=== PATIENT | male | born 1985 | race Caucasian/White ===

== ENCOUNTER 2019-11-16 21:54 | Emergency (ER) | payer MEDICAID ==
[~2019-11-16] VITALS: Ht 175.3 cm; Wt 100.0 kg
[2019-11-16] MEDS ORDERED: bacitracin 15gm ointment TP ONE (22:45)
[2019-11-16] MEDS ORDERED: TETanus/Pertussis (Acell)/Diphther VAC/PF (Tdap-Adult) 0.5ml syringe IMVAC ONE (22:45)
[2019-11-16] MEDS ORDERED: LIDOcaine 1% W/epiNEPHrine 1:200,000 10ml vial IJ ONE (22:45)
[2019-11-16 23:14] VITALS: BP 191/126
== END 2019-11-17 00:16 | disposition home or self-care (01) ==
LOC: ER 21:54
DX: S61.511A Laceration without foreign body of right wrist, initial encounter (principal); I10 Essential (primary) hypertension; I25.2 Old myocardial infarction; W22.8XXA Striking against or struck by other objects, initial encounter; Y93.89 Activity, other specified; Y92.89 Other specified places as the place of occurrence of the external cause; Y99.8 Other external cause status
CPT/HCPCS: 12001; 90471; 90715; 99283

== ENCOUNTER 2021-07-21 17:20 | Emergency (ER) | payer MEDICAID ==
[~2021-07-21] VITALS: Ht 175.3 cm; Wt 95.8 kg
[2021-07-21 17:48] VITALS: BP 166/104
== END 2021-07-21 20:24 | disposition left against medical advice (07) ==
LOC: ER 17:21
DX: R05 Cough (principal); Z53.21 Procedure and treatment not carried out due to patient leaving prior to being seen by health care provider

== ENCOUNTER 2021-08-17 11:49 | Inpatient (IN) | payer MEDICAID ==
[~2021-08-17] VITALS: Ht 175.3 cm; Wt 95.9 kg
[2021-08-17] MEDS ORDERED: cloNIDine 0.1 mg tablet PO ONE (18:15)
[2021-08-17 18:31] LABS: BASOPHILS % (AUTO) 0.5 % (0-1); EOSINOPHILS # (AUTO) 0.1 X10'3 (0-0.9); EOSINOPHILS % (AUTO) 0.7 % (0-6); HEMATOCRIT 42.5 % (42.0-52.0); HEMOGLOBIN 14.6 g/dl (14.0-17.9); LYMPHOCYTES # (AUTO) 0.8 X10'3 (1.1-4.8); LYMPHOCYTES % (AUTO) 9.1 % (21-51); MEAN CORPUSCULAR HEMOGLOBIN 30.3 PG (27.0-31.0); MEAN CORPUSCULAR HGB CONC 34.3 g/dL (33.0-36.5); MEAN CORPUSCULAR VOLUME 88.5 FL (78-98); MEAN PLATELET VOLUME 8.2 FL (7.4-10.4); MONOCYTES # (AUTO) 0.6 X10'3 (0-0.9); MONOCYTES % (AUTO) 7.1 % (2-12); NEUTROPHILS # (AUTO) 7.5 X10'3 (1.8-7.7); NEUTROPHILS % (AUTO) 82.6 % (42-75); PLATELET COUNT 256 X10'3 (140-440); RED CELL DISTRIBUTION WIDTH 14.3 % (11.5-14.5); WHITE BLOOD COUNT 9.1 X10'3 (4.5-11.0)
[2021-08-17 18:41] LABS: D-DIMER 0.22 MG/L FEU (0-0.50)
[2021-08-17 18:45] LABS: ALANINE AMINOTRANSFERASE 34 U/L (12-78); ALBUMIN 3.5 G/DL (3.4-5.0); ALKALINE PHOSPHATASE 77 IU/L (46-116); ANION GAP 13 (8-16); ASPARTATE AMINO TRANSFERASE 19 U/L (10-37); BILIRUBIN,TOTAL 1.1 MG/DL (0.1-1.0); BLOOD UREA NITROGEN 29 MG/DL (7-18); BUN/CREATININE RATIO 16.7 (5.4-32.0); CALCIUM 8.7 MG/DL (8.5-10.1); CHLORIDE 107 MMOL/L (99-107); CREATININE 1.74 MG/DL (0.60-1.10); GLUCOSE 108 MG/DL (70-104); POTASSIUM 3.6 MMOL/L (3.5-5.1); SODIUM 144 MMOL/L (135-145); TOTAL CARBON DIOXIDE 23.9 MMOL/L (24-32); TOTAL PROTEIN 6.9 G/DL (6.4-8.2); eGFR 45 ML/MIN
[2021-08-17 18:51] LABS: ETHANOL < 0.010 GM/DL (0.0-0.010)
[2021-08-17] MEDS ORDERED: furosemide 20MG tablet PO ONE (18:55)
[2021-08-17] MEDS ORDERED: nitroGLYCERIN 1gm ointment UD TP ONE (19:15)
[2021-08-17] MEDS ORDERED: metoprolol tartrate 1mg/ml inj IV ONE (19:15)
[2021-08-17] MEDS: furosemide inj 100 MG in normal saline 100ml IV soln 90 ML IV SCH (21:22)
[2021-08-17] MEDS ORDERED: mag hydrox/Alum hydrox/simeth 30ml oral suspension PO PRN (21:45)
[2021-08-17] MEDS ORDERED: ondansetron/PF 4mg/2ml inj IV PRN (21:45)
[2021-08-17] MEDS ORDERED: magnesium hydroxide 30ml (MOM) UD suspension PO PRN (21:45)
[2021-08-17] MEDS ORDERED: bisacodyl 10mg suppository rectal RC PRN (21:45)
[2021-08-17] MEDS: lisinopril 20mg tablet PO SCH (22:19)
[2021-08-17] MEDS: aspirin 81mg, enteric-coated 1 TAB TABLET.DR PO SCH (22:20)
[2021-08-17 23:34] LABS: CLARITY,URINE CLEAR (Clear); COLOR,URINE YELLOW (Yellow); UA COLLECTION TYPE VOIDED
[2021-08-17 23:35] LABS: GLUCOSE, URINE NEGATIVE (Neg); KETONES,URINE NEGATIVE (Neg); LEUKOCYTE ESTERASE ,URINE NEGATIVE (Neg); NITRITES, URINE NEGATIVE (Neg); OCCULT BLOOD,URINE NEGATIVE (Neg); PROTEIN,URINE >=1000 mg/dl (Neg); UROBILINOGEN,URINE 0.2 E.U/dL (0.2-1.0)
[2021-08-17 23:38] LABS: URINE AMPHETAMINE SCREEN NEGATIVE (Neg); URINE BARBITUATE SCREEN NEGATIVE (Neg); URINE BENZODIAZEPINES SCREEN NEGATIVE (Neg); URINE CANNABINOID SCREEN NEGATIVE (Neg); URINE COCAINE SCREEN POSITIVE (Neg); URINE METHADONE SCREEN NEGATIVE (Neg); URINE OPIATE SCREEN NEGATIVE (Neg); URINE PHENCYCLIDINE SCREEN NEGATIVE (Neg)
[2021-08-17 23:39] LABS: BACTERIA,URINE NONE SEEN /HPF (Neg); RBC,URINE NONE SEEN /HPF (0-2); SQUAMOUS EPITHELIAL CELL,UR NONE SEEN /LPF (FEW); WBC,URINE 0-4 /HPF (0-4)
[2021-08-18] MEDS: acetaminophen 325mg tablet PO PRN (04:14)
[2021-08-18] MEDS: hydrALAZINE 20mg/ml inj. IV PRN ×2 (04:15→10:10)
[2021-08-18 07:46] LABS: BASOPHILS % (AUTO) 0.6 % (0-1); EOSINOPHILS # (AUTO) 0.1 X10'3 (0-0.9); HEMATOCRIT 39.8 % (42.0-52.0); HEMOGLOBIN 13.8 g/dl (14.0-17.9); LYMPHOCYTES # (AUTO) 0.7 X10'3 (1.1-4.8); LYMPHOCYTES % (AUTO) 8.7 % (21-51); MEAN CORPUSCULAR HEMOGLOBIN 30.6 PG (27.0-31.0); MEAN CORPUSCULAR HGB CONC 34.5 g/dL (33.0-36.5); MEAN CORPUSCULAR VOLUME 88.6 FL (78-98); MEAN PLATELET VOLUME 8.4 FL (7.4-10.4); MONOCYTES # (AUTO) 0.6 X10'3 (0-0.9); MONOCYTES % (AUTO) 6.8 % (2-12); NEUTROPHILS % (AUTO) 82.9 % (42-75); PLATELET COUNT 274 X10'3 (140-440); RED CELL DISTRIBUTION WIDTH 14.5 % (11.5-14.5); WHITE BLOOD COUNT 8.5 X10'3 (4.5-11.0)
[2021-08-18 07:54] LABS: ALANINE AMINOTRANSFERASE 29 U/L (12-78); ALBUMIN 3.6 G/DL (3.4-5.0); ALBUMIN/GLOBULIN RATIO 1.1 (1.1-1.5); ALKALINE PHOSPHATASE 67 IU/L (46-116); ANION GAP 10 (8-16); ASPARTATE AMINO TRANSFERASE 16 U/L (10-37); BILIRUBIN,TOTAL 0.9 MG/DL (0.1-1.0); BLOOD UREA NITROGEN 28 MG/DL (7-18); BUN/CREATININE RATIO 17.6 (5.4-32.0); CALCIUM 8.6 MG/DL (8.5-10.1); CHLORIDE 106 MMOL/L (99-107); CREATININE 1.59 MG/DL (0.60-1.10); GLUCOSE 91 MG/DL (70-104); POTASSIUM 3.2 MMOL/L (3.5-5.1); SODIUM 144 MMOL/L (135-145); TOTAL CARBON DIOXIDE 27.7 MMOL/L (24-32); TOTAL PROTEIN 6.8 G/DL (6.4-8.2); eGFR 50 ML/MIN
[2021-08-18 07:59] LABS: CHOL/HDL RATIO 4.4 (0.00-4.99); CHOLESTEROL 131 MG/DL (0-200); HDL CHOLESTEROL 30 MG/DL (35-60); LDL CHOLESTEROL 81 MG/DL (50-100); TRIGLYCERIDES 114 MG/DL (20-135)
[2021-08-18] MEDS: furosemide 40mg/4ml inj IV SCH (08:00)
[2021-08-18] MEDS ORDERED: diltiazem CD 120mg capsule (once-daily) PO SCH (08:00)
[2021-08-18] MEDS: furosemide inj 100 MG in normal saline 100ml IV soln 90 ML IV SCH (09:14)
[2021-08-18] MEDS ORDERED: potassium Cl 20 mEq SR tablet PO STA (09:56)
[2021-08-18] MEDS: aspirin 81mg, enteric-coated 1 TAB TABLET.DR PO SCH (10:09)
[2021-08-18] MEDS: docusate sod 100mg capsule PO SCH ×2 (10:09→19:31)
[2021-08-18] MEDS: lisinopril 20mg tablet PO SCH (10:10)
[2021-08-18] MEDS: enoxaparin 40mg/0.4ml syringe SUBCUT SCH (10:11)
[2021-08-18] MEDS ORDERED: potassium Cl 40MEQ/1/2NS 520ml 520 ML IV PRN (16:25)
[2021-08-18] MEDS ORDERED: potassium Cl 20 mEq SR tablet PO PRN ×2 (16:25)
[2021-08-18] MEDS: hydrALAZINE 25 MG tablet PO SCH (16:40)
--- NOTE | 2021-08-18 16:46 | NUR ---
PT UP TO BR, VOIDED X8 THRU OUT THE DAY
--- NOTE | 2021-08-18 17:11 | NUR ---
TO CT SCAN VIA WHEELCHAIR IN STABLE CONDITION
[2021-08-18] MEDS ORDERED: iohexol 350MG/ML 100ml bottle IV ONE (17:14)
[2021-08-18] MEDS: diatr meglu/diatrizoate 30ml oral sol.-(3 dose) bottle PO SCH (23:07)
[2021-08-19] MEDS: hydrALAZINE 20mg/ml inj. IV PRN (00:44)
[2021-08-19] MEDS ORDERED: nitroGLYCERIN 0.4mg/hour patch TD SCH (01:55)
[2021-08-19] MEDS: carVEDilol 12.5mg tablet PO SCH ×2 (02:04→07:58)
[2021-08-19] MEDS: hydrALAZINE 25 MG tablet PO SCH ×2 (02:04→07:58)
--- NOTE | 2021-08-19 02:18 | NUR ---
Report called to the floor, to discharge specialist, by this author.
--- NOTE | 2021-08-19 03:25 | NUR ---
PAGER ID: [phone] MESSAGE: [phone] Lio Thacker not receive report from ER nurse. Pt was given gastrografen in. I don't know what for. Could you please clarify this for me. I want to ensure that nothing is getting missed being that I got zero report. Daniella [phone]
--- NOTE | 2021-08-19 03:51 | NUR ---
Paged Dr Guerrero regarding new admit. No report was not called to Primary RN. ER Charge called and attempted to give report to [place]. No information was exchanged. I paged for clarification regarding Gastrografin that the pt stated he received in ED at approx 2300, 0700 dose scheduled as well. No orders for procedure are in pt chart. Unsure as to why pt is receiving this RX. Dr Guerrero called back stated claudia ordered Ct w & w/o contrast but all procedure order have already been completed. Dr guerrero instructed me to not give contrast in am. Clarified that no other labs have been obtained since 1630 08/18 and pt is on lasix gtt per protocol labs are needed Q6. he okayed for labs to be obtained in am and then continue Q6. Pt stable, alert and oriented, vss stable with expected elevated bp of systolic 175. Placed on cardiac monitoring Lasix gtt running at 10mg/hr. Pt has no c/o at this time stated he wanted to try and sleep. Will continue to monitor.
[2021-08-19 06:00] VITALS: BP 157/83
[2021-08-19] MEDS: diatr meglu/diatrizoate 30ml oral sol.-(3 dose) bottle PO SCH (07:00)
--- NOTE | 2021-08-19 07:03 | NUR ---
Problems reprioritized. Patient report given, questions answered & plan of care reviewed with Siria GUTIERREZ.
[2021-08-19 07:13] LABS: BASOPHILS % (AUTO) 0.4 % (0-1); EOSINOPHILS # (AUTO) 0.1 X10'3 (0-0.9); EOSINOPHILS % (AUTO) 1.2 % (0-6); HEMATOCRIT 43.5 % (42.0-52.0); HEMOGLOBIN 14.7 g/dl (14.0-17.9); LYMPHOCYTES # (AUTO) 0.5 X10'3 (1.1-4.8); LYMPHOCYTES % (AUTO) 6.2 % (21-51); MEAN CORPUSCULAR HEMOGLOBIN 30.3 PG (27.0-31.0); MEAN CORPUSCULAR HGB CONC 33.7 g/dL (33.0-36.5); MEAN CORPUSCULAR VOLUME 89.8 FL (78-98); MEAN PLATELET VOLUME 8.3 FL (7.4-10.4); MONOCYTES # (AUTO) 0.7 X10'3 (0-0.9); MONOCYTES % (AUTO) 9.6 % (2-12); NEUTROPHILS # (AUTO) 6.4 X10'3 (1.8-7.7); NEUTROPHILS % (AUTO) 82.6 % (42-75); PLATELET COUNT 287 X10'3 (140-440); RED BLOOD COUNT 4.85 X10'6 (4.70-6.10); RED CELL DISTRIBUTION WIDTH 14.6 % (11.5-14.5); WHITE BLOOD COUNT 7.7 X10'3 (4.5-11.0)
[2021-08-19 07:47] LABS: ALANINE AMINOTRANSFERASE 31 U/L (12-78); ALBUMIN 3.3 G/DL (3.4-5.0); ALKALINE PHOSPHATASE 68 IU/L (46-116); ANION GAP 12 (8-16); ASPARTATE AMINO TRANSFERASE 14 U/L (10-37); BLOOD UREA NITROGEN 25 MG/DL (7-18); BUN/CREATININE RATIO 16.8 (5.4-32.0); CALCIUM 8.4 MG/DL (8.5-10.1); CHLORIDE 102 MMOL/L (99-107); CREATININE 1.49 MG/DL (0.60-1.10); GLUCOSE 107 MG/DL (70-104); SODIUM 141 MMOL/L (135-145); TOTAL CARBON DIOXIDE 27.3 MMOL/L (24-32); TOTAL PROTEIN 6.6 G/DL (6.4-8.2); eGFR 53 ML/MIN
[2021-08-19] MEDS: furosemide inj 100 MG in normal saline 100ml IV soln 90 ML IV SCH (07:57)
[2021-08-19] MEDS: aspirin 81mg, enteric-coated 1 TAB TABLET.DR PO SCH (07:58)
[2021-08-19] MEDS: docusate sod 100mg capsule PO SCH (07:58)
[2021-08-19] MEDS: lisinopril 20mg tablet PO SCH (07:59)
[2021-08-19] MEDS: enoxaparin 40mg/0.4ml syringe SUBCUT SCH (07:59)
[2021-08-19] MEDS: furosemide 40mg/4ml inj IV SCH (08:00)
[2021-08-19 08:31] LABS: POTASSIUM 2.7 MMOL/L (3.5-5.1)
[2021-08-19] MEDS: acetaminophen 325mg tablet PO PRN (09:20)
[2021-08-19 10:00] LABS: ALANINE AMINOTRANSFERASE 29 U/L (12-78); ALBUMIN 3.3 G/DL (3.4-5.0); ALKALINE PHOSPHATASE 67 IU/L (46-116); ANION GAP 10 (8-16); ASPARTATE AMINO TRANSFERASE 13 U/L (10-37); BILIRUBIN,TOTAL 0.9 MG/DL (0.1-1.0); BLOOD UREA NITROGEN 23 MG/DL (7-18); BUN/CREATININE RATIO 14.1 (5.4-32.0); CALCIUM 8.5 MG/DL (8.5-10.1); CHLORIDE 102 MMOL/L (99-107); CREATININE 1.63 MG/DL (0.60-1.10); GLUCOSE 119 MG/DL (70-104); MAGNESIUM 1.8 MG/DL (1.5-2.4); POTASSIUM 3.1 MMOL/L (3.5-5.1); SODIUM 141 MMOL/L (135-145); TOTAL CARBON DIOXIDE 28.8 MMOL/L (24-32); TOTAL PROTEIN 6.6 G/DL (6.4-8.2); eGFR 48 ML/MIN
[2021-08-19] MEDS ORDERED: ASPI-1071 PO (10:52)
[2021-08-19] MEDS ORDERED: HYDR-4069 PO (10:52)
[2021-08-19] MEDS ORDERED: CARV-50 PO (10:52)
[2021-08-19] MEDS ORDERED: LISI20TA28 PO (10:52)
[2021-08-19] MEDS ORDERED: FURO-149 PO (10:53)
[2021-08-19] MEDS ORDERED: POTA20TA19 PO (10:54)
[2021-08-19] MEDS ORDERED: POTA10TA36 PO (10:54)
[2021-08-19 11:00] VITALS: BP 141/87
--- NOTE | 2021-08-19 13:00 | NUR ---
Patient stable for discharge. PIV x2 removed with catheter intact. Discharge instructions given to patient and the spouse. Both verbalized understanding. All belongings sent home with patient. Patient transferred off unit via wheelchair to 's vehicle.
== END 2021-08-19 13:00 | disposition home or self-care (01) | DRG 199 ==
LOC: ER 11:49 → ED HOLD 21:54 → PCU 3S 08-19 02:48
PROVIDERS: ADMIT Family Medicine; ATTEND Internal Medicine
PROC: B4201ZZ Computerized Tomography (CT Scan) of Abdominal Aorta using Low Osmolar Contrast (ICD-10-PCS; principal; 2021-08-18)
PROC: B4281ZZ Computerized Tomography (CT Scan) of Bilateral Renal Arteries using Low Osmolar Contrast (ICD-10-PCS; 2021-08-18)
PROC: B42C1ZZ Computerized Tomography (CT Scan) of Pelvic Arteries using Low Osmolar Contrast (ICD-10-PCS; 2021-08-18)
PROC: B42H1ZZ Computerized Tomography (CT Scan) of Bilateral Lower Extremity Arteries using Low Osmolar Contrast (ICD-10-PCS; 2021-08-18)
PROC: B4211ZZ Computerized Tomography (CT Scan) of Celiac Artery using Low Osmolar Contrast (ICD-10-PCS; 2021-08-18)
DX: I16.1 Hypertensive emergency (principal); N17.9 Acute kidney failure, unspecified; I24.8 Other forms of acute ischemic heart disease; K92.0 Hematemesis; R04.2 Hemoptysis; Z20.822 Contact with and (suspected) exposure to COVID-19; I11.0 Hypertensive heart disease with heart failure; I50.9 Heart failure, unspecified; I25.2 Old myocardial infarction; Z56.0 Unemployment, unspecified; Z83.49 Family history of other endocrine, nutritional and metabolic diseases; Z79.899 Other long term (current) drug therapy; Z79.82 Long term (current) use of aspirin; Z91.14 Patient's other noncompliance with medication regimen
CPT/HCPCS: 36415; 71045; 71250; 74170; 80053; 80061; 80305; 80320; 81001; 83735; 83880; 84132; 84484; 85025; 85379; 87081; 87635; 93005; 93306; 96374; 99291; C9803; G0378; J0360; J1650; J1940; J3490; Q9963; Q9967

== ENCOUNTER 2021-09-25 18:27 | Emergency (ER) | payer MEDICAID ==
[~2021-09-25] VITALS: Ht 175.3 cm; Wt 97.7 kg
[~2021-09-25 18:27] MED LIST: ASPI-1071 PO; CARV-50 PO; FURO-149 PO; HYDR-4069 PO; LISI20TA28 PO; POTA10TA37 PO
[2021-09-25 19:19] LABS: BASOPHILS # (AUTO) 0.1 X10'3 (0-0.2); BASOPHILS % (AUTO) 0.8 % (0-1); EOSINOPHILS # (AUTO) 0.2 X10'3 (0-0.9); HEMATOCRIT 40.6 % (42.0-52.0); HEMOGLOBIN 13.6 g/dl (14.0-17.9); LYMPHOCYTES # (AUTO) 0.6 X10'3 (1.1-4.8); LYMPHOCYTES % (AUTO) 10.1 % (21-51); MEAN CORPUSCULAR HEMOGLOBIN 28.4 PG (27.0-31.0); MEAN CORPUSCULAR HGB CONC 33.5 g/dL (33.0-36.5); MEAN CORPUSCULAR VOLUME 84.7 FL (78-98); MEAN PLATELET VOLUME 8.2 FL (7.4-10.4); MONOCYTES # (AUTO) 0.5 X10'3 (0-0.9); MONOCYTES % (AUTO) 8.2 % (2-12); NEUTROPHILS # (AUTO) 4.7 X10'3 (1.8-7.7); NEUTROPHILS % (AUTO) 77.9 % (42-75); PLATELET COUNT 237 X10'3 (140-440); RED BLOOD COUNT 4.79 X10'6 (4.70-6.10); WHITE BLOOD COUNT 6.1 X10'3 (4.5-11.0)
[2021-09-25 19:40] LABS: ALANINE AMINOTRANSFERASE 28 U/L (12-78); ALBUMIN 3.1 G/DL (3.4-5.0); ALBUMIN/GLOBULIN RATIO 0.9 (1.1-1.5); ALKALINE PHOSPHATASE 75 IU/L (46-116); ANION GAP 11 (8-16); ASPARTATE AMINO TRANSFERASE 23 U/L (10-37); BILIRUBIN,TOTAL 0.6 MG/DL (0.1-1.0); BLOOD UREA NITROGEN 22 MG/DL (7-18); BUN/CREATININE RATIO 12.9 (5.4-32.0); CALCIUM 8.5 MG/DL (8.5-10.1); CHLORIDE 111 MMOL/L (99-107); GLUCOSE 92 MG/DL (70-104); POTASSIUM 4.2 MMOL/L (3.5-5.1); SODIUM 143 MMOL/L (135-145); TOTAL CARBON DIOXIDE 20.9 MMOL/L (24-32); TOTAL PROTEIN 6.7 G/DL (6.4-8.2); eGFR 46 ML/MIN
[2021-09-26 01:17] VITALS: BP 223/154
--- NOTE | 2021-09-26 01:18 | NUR ---
md grant notified of elevated blood pressure. pt states this is his normal bp.
--- NOTE | 2021-09-26 04:38 | NUR ---
pt left due to wait time
== END 2021-09-26 04:39 | disposition left against medical advice (07) ==
LOC: ER 18:28
DX: R07.9 Chest pain, unspecified (principal); R60.0 Localized edema; Z53.21 Procedure and treatment not carried out due to patient leaving prior to being seen by health care provider
CPT/HCPCS: 36415; 71045; 80053; 83735; 83880; 84484; 85025; 93005

== ENCOUNTER 2021-09-26 20:42 | Inpatient (IN) | payer MEDICAID ==
[~2021-09-26] VITALS: Ht 175.3 cm; Wt 103.0 kg
[2021-09-26] MEDS ORDERED: labetalol 20mg/4ml (5mg/ml) syringe IV ONE (21:10)
[2021-09-26 21:25] LABS: BASOPHILS # (AUTO) 0.1 X10'3 (0-0.2); BASOPHILS % (AUTO) 0.9 % (0-1); EOSINOPHILS # (AUTO) 0.2 X10'3 (0-0.9); HEMATOCRIT 42.3 % (42.0-52.0); HEMOGLOBIN 14.2 g/dl (14.0-17.9); LYMPHOCYTES # (AUTO) 0.8 X10'3 (1.1-4.8); LYMPHOCYTES % (AUTO) 14.7 % (21-51); MEAN CORPUSCULAR HEMOGLOBIN 28.4 PG (27.0-31.0); MEAN CORPUSCULAR HGB CONC 33.7 g/dL (33.0-36.5); MEAN CORPUSCULAR VOLUME 84.3 FL (78-98); MEAN PLATELET VOLUME 8.1 FL (7.4-10.4); MONOCYTES # (AUTO) 0.6 X10'3 (0-0.9); MONOCYTES % (AUTO) 10.3 % (2-12); NEUTROPHILS # (AUTO) 3.9 X10'3 (1.8-7.7); NEUTROPHILS % (AUTO) 71.1 % (42-75); PLATELET COUNT 249 X10'3 (140-440); RED BLOOD COUNT 5.01 X10'6 (4.70-6.10); RED CELL DISTRIBUTION WIDTH 13.7 % (11.5-14.5); WHITE BLOOD COUNT 5.4 X10'3 (4.5-11.0)
[2021-09-26 21:35] LABS: ALANINE AMINOTRANSFERASE 28 U/L (12-78); ALBUMIN 3.2 G/DL (3.4-5.0); ALBUMIN/GLOBULIN RATIO 0.9 (1.1-1.5); ALKALINE PHOSPHATASE 76 IU/L (46-116); ANION GAP 10 (8-16); ASPARTATE AMINO TRANSFERASE 22 U/L (10-37); BILIRUBIN,TOTAL 0.7 MG/DL (0.1-1.0); BLOOD UREA NITROGEN 23 MG/DL (7-18); BUN/CREATININE RATIO 13.1 (5.4-32.0); CALCIUM 8.9 MG/DL (8.5-10.1); CHLORIDE 111 MMOL/L (99-107); CREATININE 1.76 MG/DL (0.60-1.10); GLUCOSE 88 MG/DL (70-104); POTASSIUM 4.2 MMOL/L (3.5-5.1); SODIUM 144 MMOL/L (135-145); TOTAL CARBON DIOXIDE 22.7 MMOL/L (24-32); TOTAL PROTEIN 6.9 G/DL (6.4-8.2); eGFR 44 ML/MIN
[2021-09-26] MEDS ORDERED: furosemide 10 MG/1 ML 10ml inj IV ONE (22:25)
[2021-09-27] MEDS ORDERED: magnesium Cl slow-release 64mg tablet PO PRN (00:35)
[2021-09-27] MEDS ORDERED: acetaminophen 325mg tablet PO PRN ×2 (00:35)
[2021-09-27] MEDS ORDERED: magnesium hydroxide 30ml (MOM) UD suspension PO PRN (00:35)
[2021-09-27] MEDS ORDERED: HYDROcodone/acetaminophen 5mg/325mg tablet PO PRN (00:35)
[2021-09-27] MEDS ORDERED: potassium Cl 40MEQ/1/2NS 520ml 520 ML IV PRN ×2 (00:35)
[2021-09-27] MEDS ORDERED: morphine 2 MG/ML inj. syringe IV PRN (00:35)
[2021-09-27] MEDS ORDERED: magnesium 2GM in 50ml NS 50 ML IV PRN (00:35)
[2021-09-27] MEDS ORDERED: potassium Cl 20 mEq SR tablet PO PRN (00:35)
[2021-09-27] MEDS ORDERED: ondansetron/PF 4mg/2ml inj IV PRN (00:35)
[2021-09-27] MEDS ORDERED: magnesium 4gm in 100ml NS 100 ML IV PRN (00:35)
--- NOTE | 2021-09-27 01:00 | NUR ---
PT WAS ROOMED IN BED 7.
[2021-09-27 03:10] LABS: URINE AMPHETAMINE SCREEN NEGATIVE (Neg); URINE BARBITUATE SCREEN NEGATIVE (Neg); URINE BENZODIAZEPINES SCREEN NEGATIVE (Neg); URINE CANNABINOID SCREEN NEGATIVE (Neg); URINE COCAINE SCREEN NEGATIVE (Neg); URINE METHADONE SCREEN NEGATIVE (Neg); URINE OPIATE SCREEN NEGATIVE (Neg); URINE PHENCYCLIDINE SCREEN NEGATIVE (Neg)
[2021-09-27 08:00] VITALS: BP 191/133
[2021-09-27] MEDS ORDERED: carVEDilol 12.5mg tablet PO SCH (08:00)
[2021-09-27] MEDS: K and/or MAG REPLACEMENT MC SCH ×2 (08:00→20:00)
[2021-09-27] MEDS: furosemide 20 MG/2 ML vial IV SCH ×2 (08:34→19:42)
[2021-09-27] MEDS: heparin, porcine 5000 units/ml vial SQ SCH ×2 (08:35→19:43)
[2021-09-27] MEDS: potassium chloride 10mEq ER tablet PO SCH (08:35)
[2021-09-27] MEDS: aspirin 81mg, enteric-coated 1 TAB TABLET.DR PO SCH (08:35)
[2021-09-27] MEDS: hydrALAZINE 25 MG tablet PO SCH ×2 (08:35→17:02)
[2021-09-27] MEDS: sacubitril/valsartan 24mg-26mg tablet PO SCH ×2 (10:06→22:04)
[2021-09-27 13:09] LABS: CLARITY,URINE CLEAR (Clear); COLOR,URINE Yellow (Yellow); UA COLLECTION TYPE URINAL
[2021-09-27 13:10] LABS: GLUCOSE, URINE NEGATIVE (Neg); KETONES,URINE NEGATIVE (Neg); LEUKOCYTE ESTERASE ,URINE NEGATIVE (Neg); NITRITES, URINE NEGATIVE (Neg); OCCULT BLOOD,URINE NEGATIVE (Neg); PROTEIN,URINE NEGATIVE (Neg); UROBILINOGEN,URINE 0.2 E.U/dL (0.2-1.0)
--- NOTE | 2021-09-27 14:00 | NUR ---
PATIENT EDUCATED ON USE OF 24 HR COLLECTION CONTATINER, VERBALIZED UNDERSTANDING.
--- NOTE | 2021-09-27 14:05 | NUR ---
US TECH AT BEDSIDE.
[2021-09-27] MEDS: cloNIDine 0.1 mg tablet PO SCH (19:41)
[2021-09-27] MEDS: carVEDilol 12.5mg tablet PO SCH (19:43)
--- NOTE | 2021-09-27 20:00 | NUR ---
Patient in room PCU 3017. I have received report from Spring GUTIERREZ and had the opportunity to ask questions and assume patient care.
[2021-09-27] MEDS ORDERED: temazepam 15mg capsule PO PRN (21:00)
[2021-09-27 22:00] VITALS: BP 182/110
[2021-09-28] MEDS: cloNIDine 0.1 mg tablet PO SCH ×3 (00:49→15:34)
[2021-09-28] MEDS: hydrALAZINE 25 MG tablet PO SCH ×3 (00:49→15:34)
[2021-09-28 02:00] VITALS: BP 162/108
[2021-09-28 05:57] LABS: BASOPHILS # (AUTO) 0.1 X10'3 (0-0.2); EOSINOPHILS # (AUTO) 0.3 X10'3 (0-0.9); EOSINOPHILS % (AUTO) 4.5 % (0-6); HEMATOCRIT 40.7 % (42.0-52.0); HEMOGLOBIN 13.6 g/dl (14.0-17.9); LYMPHOCYTES # (AUTO) 0.8 X10'3 (1.1-4.8); LYMPHOCYTES % (AUTO) 12.6 % (21-51); MEAN CORPUSCULAR HEMOGLOBIN 28.1 PG (27.0-31.0); MEAN CORPUSCULAR HGB CONC 33.5 g/dL (33.0-36.5); MEAN CORPUSCULAR VOLUME 84.1 FL (78-98); MEAN PLATELET VOLUME 7.9 FL (7.4-10.4); MONOCYTES # (AUTO) 0.7 X10'3 (0-0.9); MONOCYTES % (AUTO) 11.2 % (2-12); NEUTROPHILS # (AUTO) 4.2 X10'3 (1.8-7.7); NEUTROPHILS % (AUTO) 70.7 % (42-75); PLATELET COUNT 295 X10'3 (140-440); RED BLOOD COUNT 4.83 X10'6 (4.70-6.10)
[2021-09-28 06:21] LABS: ALANINE AMINOTRANSFERASE 32 U/L (12-78); ALBUMIN/GLOBULIN RATIO 0.9 (1.1-1.5); ALKALINE PHOSPHATASE 69 IU/L (46-116); ANION GAP 8 (8-16); ASPARTATE AMINO TRANSFERASE 18 U/L (10-37); BILIRUBIN,TOTAL 0.7 MG/DL (0.1-1.0); BLOOD UREA NITROGEN 22 MG/DL (7-18); BUN/CREATININE RATIO 12.9 (5.4-32.0); CALCIUM 8.5 MG/DL (8.5-10.1); CHLORIDE 108 MMOL/L (99-107); CREATININE 1.71 MG/DL (0.60-1.10); GLUCOSE 99 MG/DL (70-104); POTASSIUM 3.1 MMOL/L (3.5-5.1); SODIUM 142 MMOL/L (135-145); TOTAL CARBON DIOXIDE 25.6 MMOL/L (24-32); TOTAL PROTEIN 6.4 G/DL (6.4-8.2); eGFR 46 ML/MIN
--- NOTE | 2021-09-28 06:40 | NUR ---
Problems reprioritized. Patient report given, questions answered & plan of care reviewed with Farzaneh GUTIERREZ.
[2021-09-28] MEDS: carVEDilol 12.5mg tablet PO SCH ×2 (07:26→20:49)
[2021-09-28] MEDS: furosemide 20 MG/2 ML vial IV SCH ×2 (07:26→20:48)
[2021-09-28] MEDS: heparin, porcine 5000 units/ml vial SQ SCH ×2 (07:26→20:50)
[2021-09-28] MEDS: potassium chloride 10mEq ER tablet PO SCH (07:26)
[2021-09-28] MEDS: aspirin 81mg, enteric-coated 1 TAB TABLET.DR PO SCH (07:27)
[2021-09-28] MEDS: K and/or MAG REPLACEMENT MC SCH ×2 (08:00→20:00)
[2021-09-28] MEDS: sacubitril/valsartan 24mg-26mg tablet PO SCH ×2 (09:37→20:48)
[2021-09-28 11:00] VITALS: BP 143/98
[2021-09-28] MEDS: potassium Cl 20 mEq SR tablet PO PRN ×2 (13:11→20:59)
--- NOTE | 2021-09-28 14:20 | NUR ---
PATIENT SITTING IN CHAIR WITH VISITOR IN ROOM.
[2021-09-28 15:00] VITALS: BP 157/100
[2021-09-28 15:07] LABS: SODIUM,URINE RANDOM 104 MEQ/L
[2021-09-28 15:10] LABS: TOTAL PROTEIN,URINE RANDOM < 6.0 MG/DL
[2021-09-28 15:39] LABS: CLARITY,URINE CLEAR (Clear); COLOR,URINE STRAW (Yellow); GLUCOSE, URINE NEGATIVE (Neg); KETONES,URINE NEGATIVE (Neg); LEUKOCYTE ESTERASE ,URINE NEGATIVE (Neg); NITRITES, URINE NEGATIVE (Neg); OCCULT BLOOD,URINE NEGATIVE (Neg); PROTEIN,URINE NEGATIVE (Neg); UA COLLECTION TYPE NON-SPECIFIED; UROBILINOGEN,URINE 0.2 E.U/dL (0.2-1.0)
[2021-09-28 16:44] LABS: UA EOSINOPHILS NO EOS /HPF
--- NOTE | 2021-09-28 17:30 | NUR ---
IN ROOM WITH VISITOR EATING DINNER.
[2021-09-28 18:00] VITALS: BP 162/114
[2021-09-28 22:00] VITALS: BP 162/114
[2021-09-29] MEDS: cloNIDine 0.1 mg tablet PO SCH (00:30)
[2021-09-29] MEDS: hydrALAZINE 25 MG tablet PO SCH (00:30)
[2021-09-29 02:00] VITALS: BP 185/107
[2021-09-29 06:00] VITALS: BP 168/120
[2021-09-29 06:02] LABS: BASOPHILS % (AUTO) 0.8 % (0-1); EOSINOPHILS # (AUTO) 0.2 X10'3 (0-0.9); EOSINOPHILS % (AUTO) 3.6 % (0-6); HEMATOCRIT 41.4 % (42.0-52.0); HEMOGLOBIN 13.8 g/dl (14.0-17.9); LYMPHOCYTES # (AUTO) 0.8 X10'3 (1.1-4.8); LYMPHOCYTES % (AUTO) 13.3 % (21-51); MEAN CORPUSCULAR HEMOGLOBIN 28.1 PG (27.0-31.0); MEAN CORPUSCULAR HGB CONC 33.4 g/dL (33.0-36.5); MEAN CORPUSCULAR VOLUME 84.1 FL (78-98); MEAN PLATELET VOLUME 7.8 FL (7.4-10.4); MONOCYTES # (AUTO) 0.8 X10'3 (0-0.9); NEUTROPHILS # (AUTO) 4.1 X10'3 (1.8-7.7); NEUTROPHILS % (AUTO) 69.3 % (42-75); PLATELET COUNT 277 X10'3 (140-440); RED BLOOD COUNT 4.92 X10'6 (4.70-6.10); RED CELL DISTRIBUTION WIDTH 14.2 % (11.5-14.5); WHITE BLOOD COUNT 5.9 X10'3 (4.5-11.0)
[2021-09-29 06:22] LABS: ALANINE AMINOTRANSFERASE 23 U/L (12-78); ALBUMIN 2.8 G/DL (3.4-5.0); ALBUMIN/GLOBULIN RATIO 0.8 (1.1-1.5); ALKALINE PHOSPHATASE 70 IU/L (46-116); ANION GAP 9 (8-16); BILIRUBIN,TOTAL 0.4 MG/DL (0.1-1.0); BLOOD UREA NITROGEN 22 MG/DL (7-18); BUN/CREATININE RATIO 14.3 (5.4-32.0); CALCIUM 8.2 MG/DL (8.5-10.1); CHLORIDE 107 MMOL/L (99-107); CREATININE 1.54 MG/DL (0.60-1.10); GLUCOSE 98 MG/DL (70-104); MAGNESIUM 1.9 MG/DL (1.5-2.4); POTASSIUM 3.3 MMOL/L (3.5-5.1); SODIUM 144 MMOL/L (135-145); TOTAL CARBON DIOXIDE 28.5 MMOL/L (24-32); TOTAL PROTEIN 6.3 G/DL (6.4-8.2); eGFR 51 ML/MIN
[2021-09-29 06:31] LABS: ASPARTATE AMINO TRANSFERASE 12 U/L (10-37)
[2021-09-29] MEDS: sacubitril/valsartan 24mg-26mg tablet PO SCH (07:57)
[2021-09-29] MEDS: potassium chloride 10mEq ER tablet PO SCH (07:57)
[2021-09-29] MEDS: carVEDilol 12.5mg tablet PO SCH (07:57)
[2021-09-29] MEDS: potassium Cl 20 mEq SR tablet PO PRN ×2 (07:57→13:10)
[2021-09-29] MEDS: aspirin 81mg, enteric-coated 1 TAB TABLET.DR PO SCH (07:59)
[2021-09-29] MEDS: furosemide 20 MG/2 ML vial IV SCH (08:00)
[2021-09-29] MEDS ORDERED: cloNIDine 0.1 mg tablet PO SCH (08:00)
[2021-09-29] MEDS ORDERED: hydrALAZINE 25 MG tablet PO SCH ×2 (08:00→14:00)
[2021-09-29] MEDS: K and/or MAG REPLACEMENT MC SCH (08:00)
[2021-09-29] MEDS: heparin, porcine 5000 units/ml vial SQ SCH (08:01)
[2021-09-29 11:00] VITALS: BP 139/88
[2021-09-29 14:43] VITALS: BP 145/97
--- NOTE | 2021-09-29 14:45 | NUR ---
PAGER ID: [phone] MESSAGE: Room 3017B. Lio Thacker. Last BP 145/97 with HR of 73. Thanks, Mima [phone]
[2021-09-29 15:00] VITALS: BP 153/98
[2021-09-29] MEDS ORDERED: CLON0.1T2 PO (15:50)
[2021-09-29] MEDS ORDERED: SACU1TAB PO (15:50)
[2021-09-29] MEDS ORDERED: FURO-149 PO (15:50)
[2021-09-29] MEDS ORDERED: HYDR-4069 PO (15:50)
[2021-09-29] MEDS ORDERED: CARV-50 PO (15:50)
--- NOTE | 2021-09-29 17:00 | NUR ---
Pt stable for discharge. All d/c paperwork reviewed with pt. Pt verbalized understanding. All questions answered. New prescriptions faxed to [facility] in [place] and verified received. PIV removed from right AC. tolerated well. telebox 7 removed and given to [employer]. All personal belongings sent with pt. Pt left ambulating with nursing staff to personal vehicle.
[2021-10-05 12:53] LABS: ALDOSTERONE 3.5 ng/dL (0.0-30.0)
[2021-10-07 16:22] LABS: RENIN, PLASMA <0.167 ng/mL/hr (0.167-5.380)
== END 2021-09-29 17:00 | disposition home or self-care (01) | DRG 194 ==
LOC: ER 20:43 → ED HOLD 09-27 00:33 → UNDOADMIN 09-27 00:33 → ED HOLD 09-27 00:38 → PCU 3S 09-27 20:00 → ED HOLD 09-27 20:00
PROVIDERS: ADMIT Internal Medicine; ATTEND Internal Medicine
DX: I13.0 Hypertensive heart and chronic kidney disease with heart failure and stage 1 through stage 4 chronic kidney disease, or unspecified chronic kidney disease (principal); I15.9 Secondary hypertension, unspecified; I16.1 Hypertensive emergency; I20.9 Angina pectoris, unspecified; I50.23 Acute on chronic systolic (congestive) heart failure; N18.30 Chronic kidney disease, stage 3 unspecified; Z20.822 Contact with and (suspected) exposure to COVID-19; Z79.82 Long term (current) use of aspirin; I25.2 Old myocardial infarction; Z79.899 Other long term (current) drug therapy; Z91.14 Patient's other noncompliance with medication regimen; Z72.89 Other problems related to lifestyle
CPT/HCPCS: 36415; 71045; 76770; 80053; 80305; 81003; 82088; 82570; 83605; 83735; 83880; 84156; 84244; 84300; 84484; 85025; 87040; 87081; 87207; 87635; 93005; 93975; 99285; G0378; J1644; J1940; J3490

== ENCOUNTER 2023-02-24 22:53 | Inpatient (IN) | payer MEDICAID ==
[~2023-02-24] VITALS: Ht 175.3 cm; Wt 100.7 kg
[~2023-02-24 22:53] MED LIST changes: +CLON0.1T2 PO; -LISI20TA28 PO; +POTA-206 PO; -POTA10TA37 PO; +SACU1TAB PO
[2023-02-24 23:21] LABS: BASOPHILS # (AUTO) 0.1 X10'3 (0-0.2); BASOPHILS % (AUTO) 0.9 % (0-1); EOSINOPHILS # (AUTO) 0.1 X10'3 (0-0.9); EOSINOPHILS % (AUTO) 2.3 % (0-6); HEMATOCRIT 42.7 % (42.0-52.0); HEMOGLOBIN 13.9 g/dl (14.0-17.9); LYMPHOCYTES # (AUTO) 0.7 X10'3 (1.1-4.8); LYMPHOCYTES % (AUTO) 10.9 % (21-51); MEAN CORPUSCULAR HEMOGLOBIN 26.9 PG (27.0-31.0); MEAN CORPUSCULAR HGB CONC 32.5 g/dL (33.0-36.5); MEAN PLATELET VOLUME 8.1 FL (7.4-10.4); MONOCYTES # (AUTO) 0.6 X10'3 (0-0.9); MONOCYTES % (AUTO) 9.3 % (2-12); NEUTROPHILS % (AUTO) 76.6 % (42-75); PLATELET COUNT 236 X10'3 (140-440); RED BLOOD COUNT 5.14 X10'6 (4.70-6.10); RED CELL DISTRIBUTION WIDTH 17.8 % (11.5-14.5); WHITE BLOOD COUNT 6.6 X10'3 (4.5-11.0)
[2023-02-24 23:29] LABS: ALANINE AMINOTRANSFERASE 26 U/L (12-78); ALBUMIN 3.3 G/DL (3.4-5.0); ALKALINE PHOSPHATASE 97 IU/L (46-116); ANION GAP 8 (8-16); ASPARTATE AMINO TRANSFERASE 21 U/L (10-37); BILIRUBIN,TOTAL 0.6 MG/DL (0.1-1.0); BLOOD UREA NITROGEN 41 MG/DL (7-18); CALCIUM 8.7 MG/DL (8.5-10.1); CHLORIDE 107 MMOL/L (99-107); CREATININE 1.95 MG/DL (0.60-1.10); GLUCOSE 125 MG/DL (70-104); POTASSIUM 3.3 MMOL/L (3.5-5.1); SODIUM 140 MMOL/L (135-145); TOTAL CARBON DIOXIDE 25.1 MMOL/L (24-32); TOTAL PROTEIN 6.6 G/DL (6.4-8.2); eGFR 39 ML/MIN
[2023-02-24] MEDS ORDERED: aspirin 81mg tab.chew PO ONE (23:45)
[2023-02-25] MEDS ORDERED: heparin 10,000 units/1 ML INJ IV PRN (00:05)
[2023-02-25] MEDS ORDERED: nitroGLYCERIN-Tridil 50MG/D5W 250 ML IV SCH ×2 (00:05→05:15)
[2023-02-25] MEDS ORDERED: heparin 25,000 UNIT/250ml bag 250 ML IV PRN ×2 (00:05→01:15)
[2023-02-25] MEDS ORDERED: heparin 10,000 units/1 ML INJ IV ONE ×2 (00:05→01:15)
[2023-02-25] MEDS: nitroGLYCERIN-Tridil 50MG/D5W 250 ML IV SCH ×2 (00:18→03:42)
[2023-02-25 00:35] LABS: APTT 26 SECONDS (22-32)
[2023-02-25] MEDS ORDERED: potassium Cl 20 mEq SR tablet PO STA (03:05)
--- NOTE | 2023-02-25 03:13 | NUR ---
Dr Crook ordered for Heparin infusion to be held until further notice and to increase Nitro infusion to 100mcg/min
[2023-02-25] MEDS ORDERED: acetaminophen 325mg tablet PO ONE (03:30)
[2023-02-25] MEDS ORDERED: cloNIDine 0.1 mg tablet PO ONE (03:55)
[2023-02-25] MEDS ORDERED: potassium Cl 40MEQ/1/2NS 520ml 520 ML IV PRN (04:10)
[2023-02-25] MEDS ORDERED: potassium Cl 20 mEq SR tablet PO PRN (04:10)
[2023-02-25] MEDS ORDERED: magnesium 4gm in 100ml NS 100 ML IV PRN (04:10)
[2023-02-25] MEDS ORDERED: magnesium hydroxide 30ml (MOM) UD suspension PO PRN (04:10)
[2023-02-25] MEDS ORDERED: ondansetron/PF 4mg/2ml inj IV PRN (04:10)
[2023-02-25] MEDS ORDERED: mag hydrox/Alum hydrox/simeth 30ml oral suspension PO PRN (04:10)
[2023-02-25] MEDS ORDERED: acetaminophen 325mg tablet PO PRN (04:10)
[2023-02-25] MEDS ORDERED: magnesium Cl slow-release 64mg tablet PO PRN (04:10)
[2023-02-25] MEDS ORDERED: amLODIPine 5mg tablet PO ONE (04:15)
--- NOTE | 2023-02-25 04:26 | NUR ---
Dr Patel gave verbal order to give first doses of pt antihypertensive medications now. Notified pharmacy
[2023-02-25] MEDS ORDERED: hyDRALAzine 10mg tablet PO ONE (04:35)
[2023-02-25] MEDS ORDERED: carVEDilol 12.5mg tablet PO ONE (04:35)
[2023-02-25 04:57] LABS: MAGNESIUM 1.9 MG/DL (1.5-2.4); POTASSIUM 3.5 MMOL/L (3.5-5.1)
[2023-02-25] MEDS: cloNIDine 0.1 mg tablet PO SCH ×3 (07:49→21:30)
[2023-02-25] MEDS: hyDRALAzine 10mg tablet PO SCH ×2 (07:49→16:37)
[2023-02-25] MEDS: docusate sod 100mg capsule PO SCH ×2 (07:50→21:29)
[2023-02-25] MEDS: carVEDilol 12.5mg tablet PO SCH ×2 (07:50→21:32)
[2023-02-25] MEDS: heparin, porcine 5000 units/ml vial SQ SCH ×2 (07:51→21:31)
[2023-02-25] MEDS: K and/or MAG REPLACEMENT MC SCH (08:00)
[2023-02-25] MEDS: sacubitril/valsartan 24mg-26mg tablet PO SCH ×2 (08:20→21:30)
[2023-02-25 11:58] LABS: CLARITY,URINE CLEAR (Clear); COLOR,URINE YELLOW (Yellow); GLUCOSE, URINE NEGATIVE (Neg); KETONES,URINE NEGATIVE (Neg); LEUKOCYTE ESTERASE ,URINE NEGATIVE (Neg); NITRITES, URINE NEGATIVE (Neg); OCCULT BLOOD,URINE NEGATIVE (Neg); PH,URINE 5.5 (4.8-8.0); PROTEIN,URINE 100 mg/dl (Neg); UROBILINOGEN,URINE 0.2 E.U/dL (0.2-1.0)
[2023-02-25 12:01] LABS: UA COLLECTION TYPE URINAL
[2023-02-25 12:03] LABS: BACTERIA,URINE NONE SEEN /HPF (Neg); FINE GRANULAR CAST 0-3 /LPF (NEGATIVE); HYALINE CASTS 0-3 /LPF (NEGATIVE); MUCUS STRANDS NONE SEEN /LPF (Neg); RBC,URINE 0-2 /HPF (0-2); SQUAMOUS EPITHELIAL CELL,UR NONE SEEN /LPF (FEW); WBC,URINE NONE SEEN /HPF (0-4)
[2023-02-25 12:32] LABS: URINE AMPHETAMINE SCREEN NEGATIVE (Neg); URINE BARBITUATE SCREEN NEGATIVE (Neg); URINE BENZODIAZEPINES SCREEN NEGATIVE (Neg); URINE CANNABINOID SCREEN NEGATIVE (Neg); URINE COCAINE SCREEN POSITIVE (Neg); URINE METHADONE SCREEN NEGATIVE (Neg); URINE OPIATE SCREEN NEGATIVE (Neg); URINE PHENCYCLIDINE SCREEN NEGATIVE (Neg)
[2023-02-25 18:00] VITALS: BP 147/94
--- NOTE | 2023-02-25 18:00 | NUR ---
Patient in room PCU 3018. I have received report from Ursula GUTIERREZ and had the opportunity to ask questions and assume patient care.Pt orientated to hospital evirontment. Nilsonies needs call light in reach. Addendum: 02/25/23 at 1832 by Lexie Robbins RN Amended: Links added.
--- NOTE | 2023-02-25 18:29 | NUR ---
Problems reprioritized. Patient report given, questions answered & plan of care reviewed with Temo GUTIERREZ. Bedside report completed.Pt relaxing eating dinner, Call light in reach. Addendum: 02/25/23 at 1830 by Lexie Robbins RN Amended: Links added.
[2023-02-26] VITALS (16 sets, daily range): BP systolic 119–163; BP diastolic 82–119
[2023-02-26] MEDS: hyDRALAzine 10mg tablet PO SCH ×3 (00:29→16:41)
--- NOTE | 2023-02-26 06:09 | NUR ---
Took AM VS: BP 143/[address] Glasgow: " Pt: Lio Thacker Rm [id number] Dx: HTN Crisis B/P (best out of 2) 143/104, HR 64 No PRN HTN meds"
--- NOTE | 2023-02-26 06:11 | NUR ---
Dr. Glasgow called back and said to just wait until 0800 anti-HTN meds and then recheck. Informed AM BRENDA.
--- NOTE | 2023-02-26 06:45 | NUR ---
Patient in room PCU 3018. I have received report from BRENDA Plascencia and had the opportunity to ask questions and assume patient care.
[2023-02-26 06:50] LABS: EOSINOPHILS # (AUTO) 0.1 X10'3 (0-0.9); HEMOGLOBIN 12.7 g/dl (14.0-17.9); LYMPHOCYTES # (AUTO) 0.7 X10'3 (1.1-4.8); MEAN CORPUSCULAR HGB CONC 32.4 g/dL (33.0-36.5); MEAN PLATELET VOLUME 8.3 FL (7.4-10.4); WHITE BLOOD COUNT 5.2 X10'3 (4.5-11.0)
[2023-02-26 06:52] LABS: BASOPHILS % (AUTO) 0.7 % (0-1); EOSINOPHILS % (AUTO) 1.7 % (0-6); HEMATOCRIT 39.2 % (42.0-52.0); LYMPHOCYTES % (AUTO) 13.7 % (21-51); MEAN CORPUSCULAR HEMOGLOBIN 26.9 PG (27.0-31.0); MEAN CORPUSCULAR VOLUME 82.9 FL (78-98); MONOCYTES # (AUTO) 0.5 X10'3 (0-0.9); MONOCYTES % (AUTO) 10.5 % (2-12); NEUTROPHILS # (AUTO) 3.8 X10'3 (1.8-7.7); NEUTROPHILS % (AUTO) 73.4 % (42-75); PLATELET COUNT 212 X10'3 (140-440); RED BLOOD COUNT 4.72 X10'6 (4.70-6.10)
[2023-02-26 07:05] LABS: ALANINE AMINOTRANSFERASE 28 U/L (12-78); ALBUMIN 2.9 G/DL (3.4-5.0); ALBUMIN/GLOBULIN RATIO 0.9 (1.1-1.5); ALKALINE PHOSPHATASE 80 IU/L (46-116); ANION GAP 7 (8-16); ASPARTATE AMINO TRANSFERASE 23 U/L (10-37); BILIRUBIN,TOTAL 0.5 MG/DL (0.1-1.0); BLOOD UREA NITROGEN 33 MG/DL (7-18); BUN/CREATININE RATIO 20.4 (10.0-20.0); CALCIUM 8.1 MG/DL (8.5-10.1); CHLORIDE 104 MMOL/L (99-107); CREATININE 1.62 MG/DL (0.60-1.10); GLUCOSE 108 MG/DL (70-104); MAGNESIUM 1.8 MG/DL (1.5-2.4); POTASSIUM 3.3 MMOL/L (3.5-5.1); SODIUM 136 MMOL/L (135-145); TOTAL CARBON DIOXIDE 24.6 MMOL/L (24-32); eGFR 48 ML/MIN
--- NOTE | 2023-02-26 07:15 | NUR ---
Patient in room PCU 3018. I have received report from BRENDA ESCALANTE, and had the opportunity to ask questions and assume patient care.
[2023-02-26] MEDS: cloNIDine 0.1 mg tablet PO SCH ×3 (07:46→21:23)
[2023-02-26] MEDS: potassium Cl 20 mEq SR tablet PO PRN ×3 (07:47→21:22)
[2023-02-26] MEDS: carVEDilol 12.5mg tablet PO SCH ×2 (07:48→21:22)
[2023-02-26] MEDS: sacubitril/valsartan 24mg-26mg tablet PO SCH ×2 (07:48→21:22)
[2023-02-26] MEDS: docusate sod 100mg capsule PO SCH ×2 (07:50→21:22)
[2023-02-26] MEDS: heparin, porcine 5000 units/ml vial SQ SCH ×2 (07:52→21:21)
[2023-02-26] MEDS: K and/or MAG REPLACEMENT MC SCH ×2 (07:59→20:00)
[2023-02-26] MEDS ORDERED: PERFLUTREN PROTEIN-A MICROSPHR (Optison) 0.22 MG/ML 3ML VIAL IV ONE (10:40)
[2023-02-26] MEDS ORDERED: regadenoson 0.4mg/5ml syringe IV PRN (10:45)
[2023-02-26] MEDS ORDERED: nitroGLYCERIN 0.4mg SUBLingual tab SL PRN (10:45)
[2023-02-26] MEDS ORDERED: aminophylline 250mg/10ml inj. IV PRN (10:45)
[2023-02-26] MEDS ORDERED: metoprolol tartrate 1mg/ml inj IV PRN (10:45)
[2023-02-26] MEDS ORDERED: HYDR-4069 PO (11:08)
[2023-02-26] MEDS ORDERED: POTA10CA45 PO (11:08)
[2023-02-26] MEDS ORDERED: CARV12.545 PO (11:08)
[2023-02-26] MEDS ORDERED: CLON0.1T PO (11:08)
[2023-02-26] MEDS ORDERED: FURO40TA4 PO (11:08)
[2023-02-26] MEDS ORDERED: SACU1TAB PO (11:08)
[2023-02-26] MEDS: furosemide 40mg/4ml inj IV SCH ×2 (14:25→21:22)
--- NOTE | 2023-02-26 17:55 | NUR ---
JAYA RECIEVED FROM MANNIE GUTIERREZ. ALL QUESTIONS ANSWERED, I HAVE ASSUMED CARE OF THE PATIENT.
--- NOTE | 2023-02-26 18:05 | NUR ---
PAGE SENT PAGER ID: [phone] MESSAGE: [id number], ROLF PADGETT, WHAT IS THE FLUID RESTRICTION? CAN THE PT EAT? THE RESULTS STILL AREN'T IN. THANK YOU, MANNIE Ham540
--- NOTE | 2023-02-26 18:15 | NUR ---
Problems reprioritized. Patient report given, questions answered & plan of care reviewed with BRENDA LARSON.
--- NOTE | 2023-02-26 18:16 | NUR ---
Student documentation: I have reviewed and agree with all interventions, assessments performed and documented by BRENDA CHAND. Student Medication Administration: For this medication-pass time frame, all medication were reviewed, dispensed, administered and documented per hospital policy by BRENDA CHAND.
[2023-02-27] MEDS: hyDRALAzine 10mg tablet PO SCH ×2 (00:32→08:10)
[2023-02-27 03:00] VITALS: BP 132/84
[2023-02-27 06:00] VITALS: BP 141/97
--- NOTE | 2023-02-27 06:23 | NUR ---
Patient in room PCU 3018. I have received report from BRENDA PICKETT, and had the opportunity to ask questions and assume patient care.
[2023-02-27 07:26] LABS: BASOPHILS # (AUTO) 0.1 X10'3 (0-0.2); BASOPHILS % (AUTO) 1.2 % (0-1); EOSINOPHILS # (AUTO) 0.1 X10'3 (0-0.9); EOSINOPHILS % (AUTO) 2.2 % (0-6); HEMATOCRIT 39.6 % (42.0-52.0); HEMOGLOBIN 12.8 g/dl (14.0-17.9); LYMPHOCYTES # (AUTO) 0.9 X10'3 (1.1-4.8); LYMPHOCYTES % (AUTO) 15.3 % (21-51); MEAN CORPUSCULAR HEMOGLOBIN 26.8 PG (27.0-31.0); MEAN CORPUSCULAR HGB CONC 32.4 g/dL (33.0-36.5); MEAN CORPUSCULAR VOLUME 82.8 FL (78-98); MONOCYTES # (AUTO) 0.6 X10'3 (0-0.9); MONOCYTES % (AUTO) 11.4 % (2-12); NEUTROPHILS # (AUTO) 3.9 X10'3 (1.8-7.7); NEUTROPHILS % (AUTO) 69.9 % (42-75); PLATELET COUNT 225 X10'3 (140-440); RED BLOOD COUNT 4.79 X10'6 (4.70-6.10); RED CELL DISTRIBUTION WIDTH 17.5 % (11.5-14.5); WHITE BLOOD COUNT 5.6 X10'3 (4.5-11.0)
[2023-02-27 07:47] LABS: ALANINE AMINOTRANSFERASE 22 U/L (12-78); ALBUMIN 2.8 G/DL (3.4-5.0); ALBUMIN/GLOBULIN RATIO 0.9 (1.1-1.5); ALKALINE PHOSPHATASE 71 IU/L (46-116); ANION GAP 7 (8-16); ASPARTATE AMINO TRANSFERASE 16 U/L (10-37); BILIRUBIN,TOTAL 0.5 MG/DL (0.1-1.0); BLOOD UREA NITROGEN 29 MG/DL (7-18); BUN/CREATININE RATIO 16.6 (10.0-20.0); CALCIUM 8.1 MG/DL (8.5-10.1); CHLORIDE 106 MMOL/L (99-107); CREATININE 1.75 MG/DL (0.60-1.10); GLUCOSE 93 MG/DL (70-104); MAGNESIUM 1.7 MG/DL (1.5-2.4); POTASSIUM 3.5 MMOL/L (3.5-5.1); SODIUM 140 MMOL/L (135-145); TOTAL CARBON DIOXIDE 26.9 MMOL/L (24-32); TOTAL PROTEIN 5.8 G/DL (6.4-8.2); eGFR 44 ML/MIN
[2023-02-27] MEDS: K and/or MAG REPLACEMENT MC SCH (08:00)
[2023-02-27] MEDS: docusate sod 100mg capsule PO SCH (08:00)
[2023-02-27] MEDS: carVEDilol 12.5mg tablet PO SCH (08:09)
[2023-02-27] MEDS: sacubitril/valsartan 24mg-26mg tablet PO SCH (08:10)
[2023-02-27] MEDS: cloNIDine 0.1 mg tablet PO SCH ×2 (08:11→15:52)
[2023-02-27] MEDS: heparin, porcine 5000 units/ml vial SQ SCH (08:12)
[2023-02-27] MEDS: furosemide 40mg/4ml inj IV SCH (08:12)
[2023-02-27] MEDS ORDERED: HYDR-4069 PO (10:09)
[2023-02-27] MEDS ORDERED: ASPI81TA52 PO (10:09)
[2023-02-27] MEDS ORDERED: CARV12.545 PO (10:09)
[2023-02-27] MEDS ORDERED: POTA10CA45 PO (10:09)
[2023-02-27] MEDS ORDERED: CLON0.1T PO (10:09)
[2023-02-27] MEDS ORDERED: FURO40TA4 PO (10:09)
[2023-02-27] MEDS ORDERED: SACU1TAB PO (10:09)
--- NOTE | 2023-02-27 10:19 | NUR ---
Page Sent PAGER ID: [phone] MESSAGE: [phone] Lio Molina. No routine DC orders, did you want me to enter them? Thank you, Mala GUTIERREZ [phone]
[2023-02-27 11:47] VITALS: BP 131/99
[2023-02-27 15:49] VITALS: BP 146/100
--- NOTE | 2023-02-27 16:04 | NUR ---
PT STABLE FOR DISCHARGE PER MD. DISCHARGE AND FOLLOW UP INSTRUCTIONS REVIEWED WITH PT. APPROPRIATE PAPERWORK SIGNED. TELE BOX REMOVED. PIV'S REMOVED WITH TIPS INTACT. RECREATIONAL DRUG CESSATION EDUCATION PROVIDED.O STOP. MED AND FOLLOW UP COMPLIANCE EDUCATION PROVIDED. PT DEFERRED STAFF TO ACCOMPANY HIM OFF UNIT. PT'S CAR IN ER PARKING LOT. PT D/C TO HOME.
--- NOTE | 2023-02-27 18:02 | NUR ---
Student Medication Administration: For this medication-pass time frame, all medication were reviewed, dispensed, administered and documented per hospital policy by BRENDA CHAND.
== END 2023-02-27 15:55 | disposition home or self-care (01) | DRG 194 ==
LOC: ER 22:55 → ED HOLD 02-25 04:10 → PCU 3S 02-25 17:57
PROVIDERS: ADMIT Internal Medicine; ATTEND Internal Medicine
PROC: 4A02XM4 Measurement of Cardiac Total Activity, External Approach (ICD-10-PCS; principal; 2023-02-25)
PROC: 3E033HZ Introduction of Radioactive Substance into Peripheral Vein, Percutaneous Approach (ICD-10-PCS; 2023-02-25)
DX: I11.0 Hypertensive heart disease with heart failure (principal); N17.9 Acute kidney failure, unspecified; I16.1 Hypertensive emergency; F10.90 Alcohol use, unspecified, uncomplicated; F14.10 Cocaine abuse, uncomplicated; I50.9 Heart failure, unspecified; I07.1 Rheumatic tricuspid insufficiency; E66.9 Obesity, unspecified; I25.2 Old myocardial infarction; Z68.32 Body mass index [BMI] 32.0-32.9, adult; Z91.14 Patient's other noncompliance with medication regimen; Z79.899 Other long term (current) drug therapy
CPT/HCPCS: 36415; 71045; 78452; 80053; 80305; 81001; 83735; 83880; 84132; 84484; 85025; 85610; 85730; 87081; 93005; 93017; 93306; 96374; 99285; A9500; G0378; J1644; J1940; J2785; J3490